=== PATIENT | male | born 2000 | race Caucasian/White ===

== ENCOUNTER 2024-11-11 21:29 | Emergency (ER) | payer OTHER, BC, SELFPAY ==
[2024-11-11 21:33] VITALS: BP 149/93
[2024-11-11 23:56] VITALS: BMI 25.9
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
[2024-11-12 00:51] VITALS: BP 133/80
== END 2024-11-12 00:53 | disposition home or self-care (01) ==
LOC: EMR 21:29
PROVIDERS: EMERGENCY PHYSICIAN Emergency Medicine; FAMILY PHYSICIAN Nurse Practitioner Family
DX: S06.0XAA Concussion with loss of consciousness status unknown, initial encounter (principal); V89.2XXA Person injured in unspecified motor-vehicle accident, traffic, initial encounter; Y92.410 Unspecified street and highway as the place of occurrence of the external cause
CPT/HCPCS: 99282

== ENCOUNTER → 2024-12-14 06:28 | Outpatient (REF) | payer BC, SELFPAY ==
[2024-12-14 08:55] LABS: Vitamin D, 25-OH*** 50.4 ng/mL (30-80)
== END ==
LOC: REG 06:28
PROVIDERS: ATTENDING PHYSICIAN Nurse Practitioner Family; FAMILY PHYSICIAN Nurse Practitioner Adult Health
DX: L70.0 Acne vulgaris (principal)
CPT/HCPCS: 36415; 82306; 84630

== ENCOUNTER → 2025-04-28 15:27 | Outpatient (REF) | payer BC, SELFPAY | LOC: HWRAD 15:27 | PROVIDERS: ATTENDING PHYSICIAN Nurse Practitioner Family | DX: R10.32 Left lower quadrant pain (principal) | CPT/HCPCS: 76882 ==